=== PATIENT | male | born 1970 | race Caucasian/White ===

== ENCOUNTER 2016-10-11 22:08 | Emergency (ER) | payer BC ==
[~2016-10-11] VITALS: Ht 172.7 cm; Wt 82.6 kg
[~2016-10-11 22:08] MED LIST: IBUP1CAP9 PO; MULT-506 PO; VITAMIN D3 PO
[2016-10-11 22:11] VITALS: Ht 172.7 cm; Wt 82.6 kg
[2016-10-11] MEDS ORDERED: MoRPHine SULFATE 4 MG/ML 1 ML CARP\\VIAL IV STA (22:30)
[2016-10-11] MEDS ORDERED: ONDANSETRON INJ 2 MG/ML 2 ML VIAL IV STA (22:30)
[2016-10-11] MEDS ORDERED: SODIUM CHLORIDE 0.9% 1000ML 1,000 ML IV STA ×2 (22:30)
[2016-10-11 22:49] VITALS: O2SAT 98
[2016-10-11] MEDS ORDERED: BUPR-79 PO (22:53)
[2016-10-11 23:03] LABS: BASO % 0.1 %; BASO ABS # 0.01 K/uL (0-0.2); COMPLETE YES; EOS % 0.1 %; HEMATOCRIT 47.5 % (42-52); IG% 0.3 %; LYMPH % 12.9 %; LYMPH ABS # 1.76 K/uL (1.2-3.4); MEAN CELL VOLUME 91.7 fL (80-100); MEAN CORPUSCULAR HEMOGLOBIN 31.9 pg (25-34); MEAN CORPUSCULAR HGB CONC 34.7 g/dl (32-36); MEAN PLATELET VOLUME 8.8 fL (7.4-10.4); MONO % 3.3 %; NEUT % 83.3 %; PLATELET COUNT 175 K/uL (130-400); RED BLOOD COUNT 5.18 M/uL (4.7-6.1); WHITE BLOOD COUNT 13.63 K/uL (4.8-10.8)
[2016-10-11 23:28] LABS: ALT/SGPT 37 U/L (12-78); BLOOD UREA NITROGEN 29 mg/dl (7-18); BUN/CREATININE RATIO 26.3 (10-20); CALCIUM 8.8 mg/dl (8.5-10.1); CARBON DIOXIDE 27 mmol/L (21-32); CHLORIDE 103 mmol/L (98-107); GLUCOSE 112 mg/dl (70-99); POTASSIUM 3.6 mmol/L (3.5-5.1); SODIUM 140 mmol/L (136-145)
[2016-10-11 23:32] LABS: ALKALINE PHOSPHATASE 71 U/L (45-117); AST/SGOT 19 U/L (15-37); CKMB/CK RATIO 1.2 (0-3.0)
[2016-10-12 00:49] VITALS: BP 108/55; PULSE 85; O2SAT 95
--- NOTE | 2016-10-12 00:50 | EMERGENCY ROOM VISIT NOTE ---
History First contact with patient: 22:23 Chief Complaint: VOMITING Stated Complaint: VOMITING Nursing Triage Summary: Pt reports epigastric pain and vomiting since 830pm. History of Present Illness The patient is a 46 year old male who presents to the Emergency Room with complaints of nausea vomiting and epigastric pain for the past few hours. Patient describes his pain as burning, ranging in severity 8 out of 10. Nothing makes it better or worse. No black or blood in the vomit. Patient denies chest pain, dyspnea, radiating pain, diarrhea, urinary symptoms, fever, chills. No one else is sick. Review of Systems See HPI for pertinent positives & negatives. A total of 10 systems reviewed and were otherwise negative. Past Medical/Surgical History None Social History Smoking Status: Never Smoker Smokeless Tobacco Use: No Drug Use: none Marital Status: Housing Status: lives with family Occupation Status: employed Current/Historical Medications Scheduled Bupropion (Wellbutrin Sr), 150 MG PO BID Allergies Uncoded Allergies: NKDA (Allergy, Unknown, 05/12/04) Physical Exam Vital Signs Date Time Temp Pulse Resp B/P Pulse Ox O2 Delivery O2 Flow Rate FiO2 10/12/16 00:18 87 16 123/71 98 Room Air 10/11/16 23:23 82 16 136/82 98 Room Air 10/11/16 22:49 82 10/11/16 22:49 98 Room Air 10/11/16 22:49 98 Room Air 10/11/16 22:11 76 18 132/94 98 Room Air Physical Exam VITALS: Vitals are noted on the nurse's note and reviewed by myself. Vital signs stable. GENERAL: Pleasant male actively vomiting, in no acute distress, nondiaphoretic, well-developed well-nourished. SKIN: The skin was without rashes, erythema, edema, or bruising. There is no tenting of the skin. Capillary reflex less than 2 seconds. HEAD: Normocephalic atraumatic. EARS: External auditory canals clear, tympanic membranes pearly penny without erythema or effusion bilaterally. EYES: Pupils equal round and reactive to light and accommodation. Conjunctivae without injection, sclerae without icterus. Extraocular movements intact. NOSE: Patent, turbinates without inflammation or discharge. No sinus tenderness. MOUTH: Mucous membranes mildly dry pharynx without erythema or exudate. Uvula midline. Airway patent. Tongue does not deviate. NECK: Supple without nuchal rigidity. No lymphadenopathy. No thyromegaly. Cervical spine is nontender. No JVD. HEART: Regular rate and rhythm without murmurs gallops or rubs. LUNGS: Clear to auscultation bilaterally without wheezes, rales or rhonchi. No dullness to percussion. No retractions or accessory muscle use. ABDOMEN: Positive bowel sounds x 4. Normal tympanic percussion. Soft,, tender epigastric region, no CVA tenderness, without masses or organomegaly. Jaramillo sign negative. No guarding or rebound tenderness. MUSCULOSKELETAL: No muscle atrophy, erythema, or edema noted. NEURO: Patient was alert and oriented to person place and time. Normal sensation to light and sharp touch. No focal neurological deficits. Medical Decision & Procedures Laboratory Results 10/11/16 22:41 Red Blood Count 5.18, Mean Corpuscular Volume 91.7, Mean Corpuscular Hemoglobin 31.9, Mean Corpuscular Hemoglobin Concent 34.7, Mean Platelet Volume 8.8, Neutrophils (%) (Auto) 83.3, Lymphocytes (%) (Auto) 12.9, Monocytes (%) (Auto) 3.3, Eosinophils (%) (Auto) 0.1, Basophils (%) (Auto) 0.1, Neutrophils # (Auto) 11.36, Lymphocytes # (Auto) 1.76, Monocytes # (Auto) 0.45, Eosinophils # (Auto) 0.01, Basophils # (Auto) 0.01 10/11/16 22:41 Test 10/11/16 22:41 White Blood Count 13.63 K/uL (4.8-10.8) Red Blood Count 5.18 M/uL (4.7-6.1) Hemoglobin 16.5 g/dL (14.0-18.0) Hematocrit 47.5 % (42-52) Mean Corpuscular Volume 91.7 fL (80-100) Mean Corpuscular Hemoglobin 31.9 pg (25-34) Mean Corpuscular Hemoglobin Concent 34.7 g/dl (32-36) Platelet Count 175 K/uL (130-400) Mean Platelet Volume 8.8 fL (7.4-10.4) Neutrophils (%) (Auto) 83.3 % Lymphocytes (%) (Auto) 12.9 % Monocytes (%) (Auto) 3.3 % Eosinophils (%) (Auto) 0.1 % Basophils (%) (Auto) 0.1 % Neutrophils # (Auto) 11.36 K/uL (1.4-6.5) Lymphocytes # (Auto) 1.76 K/uL (1.2-3.4) Monocytes # (Auto) 0.45 K/uL (0.11-0.59) Eosinophils # (Auto) 0.01 K/uL (0-0.5) Basophils # (Auto) 0.01 K/uL (0-0.2) RDW Standard Deviation 41.9 fL (36.4-46.3) RDW Coefficient of Variation 12.5 % (11.5-14.5) Immature Granulocyte % (Auto) 0.3 % Immature Granulocyte # (Auto) 0.04 K/uL (0.00-0.02) Anion Gap 10.0 mmol/L (3-11) Est Creatinine Clear Calc Drug Dose 87.9 ml/min Estimated GFR () 92.8 Estimated GFR (Non- 80.1 BUN/Creatinine Ratio 26.3 (10-20) Calcium Level 8.8 mg/dl (8.5-10.1) Total Bilirubin 0.5 mg/dl (0.2-1) Direct Bilirubin 0.1 mg/dl (0-0.2) Aspartate Amino Transf (AST/SGOT) 19 U/L (15-37) Alanine Aminotransferase (ALT/SGPT) 37 U/L (12-78) Alkaline Phosphatase 71 U/L (45-117) Total Creatine Kinase 206 U/L (39-308) Creatine Kinase MB 2.4 ng/ml (0.5-3.6) Creatine Kinase MB Ratio 1.2 (0-3.0) Troponin I < 0.015 ng/ml (0-0.045) Total Protein 7.0 gm/dl (6.4-8.2) Albumin 3.8 gm/dl (3.4-5.0) Lipase 170 U/L (73-393) Medications Administered Medications (Trade) Dose Ordered Sig/Hero Route Start Time Stop Time Status Last Admin Dose Admin Sodium Chloride 1,000 ml @ 999 mls/hr Q1H1M STAT IV 10/11/16 22:30 10/11/16 23:30 DC 10/11/16 22:41 999 MLS/HR Sodium Chloride (Nss 1000ml) 1,000 ml @ 200 mls/hr Q5H STAT IV 10/11/16 22:30 10/12/16 03:29 10/11/16 23:23 200 MLS/HR Ondansetron HCl (Zofran Inj) 4 mg NOW STAT IV 10/11/16 22:30 10/11/16 22:32 DC 10/11/16 22:40 4 MG Morphine Sulfate (MoRPHine SULFATE INJ) 4 mg NOW STAT IV 10/11/16 22:30 10/11/16 22:32 DC 10/11/16 22:41 4 MG ED Course Prior records/ancillary studies reviewed. Triage Nursing notes reviewed. Additional history obtained from family The patient's history was concerning for abdominal pain. Differential diagnosis: Etiologies such as gastritis, food borne illness, appendicitis, diverticulitis, PUD, biliary pathology, UTI, pancreatitis, obstruction, mesenteric ischemia, aortic pathology, infections, inflammatory bowel disease, renal colic, as well as others were entertained. Physical examination findings: As above. ER treatment provided: Zofran, morphine, IV fluids On reassessment the patient felt better. Diagnostics interpreted by me: The labs revealed no worrisome leukocytosis or left slight abnormality. Negative troponin Imaging studies: US RUQ: Sludge within the gallbladder. No definite gallstones. No evidence of GB wall thickening or pericholecystic fluid. Sonographic Jaramillo sign is negative. No biliary dilatation. Liver, right kidney unremarkable. No free fluid. Radiologist: Timothy Osman MD Study ready at 00:15 and initial results transmitted Chest x-ray with no free air, pneumothorax or consolidation per my interpretation Exam and history seem consistent with biliary colic and vomiting. Patient was well-appearing. Pain had resolved. Negative EKG. Negative troponin. She was advised to follow-up family medicine in a few days or here in the ER sooner for vomiting, fevers, vomiting, worsening signs or symptoms or as needed. She did not have acute abdomen on exam and was stable. She is tolerating fluids.By the evaluation outlined above emergent etiologies such as appendicitis, diverticulitis, PUD, UTI, pancreatitis, obstruction, mesenteric ischemia, aortic pathology, infections, inflammatory bowel disease, renal colic, as well as others were deemed relatively unlikely. The pt informed about the findings as listed above. All questions were answered and pleased with the treatment. Return instructions were outlined and the patient was discharged in stable condition. Outpatient prescription management: richiefran Referral: The patient was referred back to their primary care physician for follow-up in 2 to 3 days for a recheck of the current condition. Case reviewed by attending. Medical Decision As above Impression Primary Impression: Vomiting Additional Impression: Biliary colic Departure Information Dispostion Home / Self-Care Condition GOOD Referrals Parag Shah M.D. (PCP) Patient Instructions My [facility] [place] [employer] Additional Instructions Avoid fatty foods. [place] diet. Recommend hida scan outpatient with family care doctor for further evaluation and workup on her gallbladder. Ibuprofen(Motrin, Advil) may be used for fever or pain. Use 600mg every six hours as needed. Take with food. Avoid using more than 2400mg in a 24 hour period. Do not use 2400mg per day for more than three consecutive days without physician direction. Prolonged inappropriate use can lead to stomach upset or ulcers. (AND/OR) Acetaminophen(Tylenol) may be used for fever or pain. Use 1000mg every six hours as needed. Avoid using more than 3000mg in a 24 hour period. Rest and drink plenty of fluids as tolerated. Continue current medications. Avoid strenuous activities and anything that worsens your pain. Resume normal activities once your symptoms resolve. Return to the ER immediately for worsening or persistent abdominal pain, vomiting, fevers, chest pains, difficulty breathing, worsening of your condition , or as needed. Follow up with your primary physician in 2-3 days for a recheck of your current condition. Problem Qualifiers Primary Impression: Vomiting Vomiting type: unspecified Vomiting Intractability: non-intractable Nausea presence: with nausea Qualified Codes: R11.2 - Nausea with vomiting, unspecified
[2016-10-12] MEDS ORDERED: ONDANSETRON HOME PACK 4MG OD TAB PO ONE (01:00)
--- NOTE | 2016-10-12 06:41 | DIAGNOSTIC IMAGING REPORT ---
BILIARY ULTRASOUND CLINICAL HISTORY: Epigastric abdominal pain COMPARISON STUDY: No previous studies for comparison. FINDINGS: Pancreas is nonvisualized. No hepatic masses are visualized. There is no ductal dilatation. The common bile duct measured 5 mm. No gallstones were visualized. There is a small amount of sludge within the gallbladder. There is no right-sided hydronephrosis. IMPRESSION: Small amount of sludge in the gallbladder, but no shadowing calculi identified. No evidence of ductal dilatation. Nondiagnostic evaluation of the pancreas Electronically signed by: Hima Corey M.D. 10/12/2016 6:40 AM Dictated Date/Time: 10/12/2016 6:38 AM
--- NOTE | 2016-10-12 07:13 | DIAGNOSTIC IMAGING REPORT ---
SINGLE VIEW CHEST CLINICAL HISTORY: Atypical chest pain. FINDINGS: An AP, portable, upright chest radiograph is compared to study dated 10/13/12. The examination is mildly degraded by portable technique and patient rotation. The cardiomediastinal silhouette is unremarkable. The lungs and pleural spaces are clear. No pneumothorax is seen. The bony thorax is grossly intact. IMPRESSION: No active disease in the chest. Electronically signed by: Hector Wells M.D. 10/12/2016 7:12 AM Dictated Date/Time: 10/12/2016 7:12 AM
== END 2016-10-12 01:00 | disposition home or self-care (01) ==
LOC: C.EDB 22:09 → C.EDC 10-12 01:00
DX: R11.2 Nausea with vomiting, unspecified (principal); K80.50 Calculus of bile duct without cholangitis or cholecystitis without obstruction

== ENCOUNTER → 2016-10-31 | Outpatient (CLI) | payer BC ==
[~2016-10-31] MED LIST changes: +BUPR-79 PO; -IBUP1CAP9 PO; -MULT-506 PO; -VITAMIN D3 PO
--- NOTE | 2016-10-31 10:29 | DIAGNOSTIC IMAGING REPORT ---
CHEST 2 VIEWS ROUTINE CLINICAL HISTORY: R53.83 E29.1 F41.1 R06.02 CHEST PRESSURE COMPARISON STUDY: 217 FINDINGS: The cardiac and mediastinal contours are normal. There is no evidence of focal pulmonary consolidation. There is no evidence of failure. No pleural effusions are visualized.[ IMPRESSION: No active disease in the chest. Electronically signed by: Hima Corey M.D. 10/31/2016 10:28 AM Dictated Date/Time: 10/31/2016 10:28 AM
== END | disposition home or self-care (01) ==
LOC: C.RAD1850 10:17
DX: R53.83 Other fatigue (principal); E29.1 Testicular hypofunction; F41.1 Generalized anxiety disorder; R06.02 Shortness of breath

== ENCOUNTER → 2017-10-17 | Outpatient (CLI) | payer OTHER ==
--- NOTE | 2017-10-17 16:43 | DIAGNOSTIC IMAGING REPORT ---
SOFT TISS HEAD/NECK-THYROID CLINICAL HISTORY: 47 years-old Male presenting with BENIGN NEOPLASM OF CONECTV/SFT TISSUE OF HEAD... TECHNIQUE: Real-time grayscale and color Doppler ultrasound imaging of the thyroid and base of the neck was performed. COMPARISON: None. FINDINGS: Right lobe: Normal echogenicity and echotexture. The right lobe of the thyroid measures 5.1 x 2.4 x 2.0 cm. 1) Interpolar nodule measuring 1.6 x 1.8 x 1.3 cm, which is well-defined, wider than tall, partially cystic with hyperechogenic foci with ringdown artifact consistent with colloid (very low suspicion pattern). 2) interpolar nodule measuring 1.0 x 1.1 x 1.1 cm, which is partially cystic partially solid, well-defined, wider than tall (very low suspicion pattern). Left lobe: Normal echogenicity and echotexture. The left lobe of the thyroid measures 4.4 x 1.6 x 1.4 cm. 1) interpolar nodule measuring 0.6 x 0.5 x 0.4 cm, which is well-defined, wider than tall, heterogeneously isoechoic (low suspicion pattern). Isthmus: The isthmus measures 3 mm in thickness. No nodules. IMPRESSION: Multiple low or very low suspicion pattern thyroid nodules. No fine-needle aspiration is recommended at this time per the [place] [employer] criteria. Electronically signed by: Cornelio Leary M.D. 10/17/2017 4:42 PM Dictated Date/Time: 10/17/2017 4:39 PM
== END | disposition home or self-care (01) ==
LOC: C.ULTR 15:27
PROVIDERS: ATTEND Physician Assistant
DX: D21.0 Benign neoplasm of connective and other soft tissue of head, face and neck (principal); E04.2 Nontoxic multinodular goiter